=== PATIENT | male | born 1980 | race Caucasian/White ===

== ENCOUNTER 2017-02-21 20:38 | Emergency (ER) | payer SELFPAY ==
[~2017-02-21] VITALS: Ht 157.5 cm; Wt 58.0 kg
[~2017-02-21 20:38] MED LIST: MULT1CAP32 PO; PHEN1PAC8 PO
[2017-02-21 21:17] VITALS: BP 130/62
[2017-02-21] MEDS ORDERED: SULFAMETHOX/TRIMETH DS 800-160 MG/TABLET PO ONE (21:30)
[2017-02-21] MEDS ORDERED: IBUPROFEN 600 MG TABLET PO ONE (21:30)
== END 2017-02-21 21:40 | disposition home or self-care (01) ==
LOC: EMS 20:39
DX: M70.21 Olecranon bursitis, right elbow (principal); M79.89 Other specified soft tissue disorders
CPT/HCPCS: 99283